=== PATIENT | male | born 1965 | race Caucasian/White ===

== ENCOUNTER 2017-01-30 16:38 | Inpatient (IN) | payer MEDICAID ==
[~2017-01-30] VITALS: Ht 162.6 cm; Wt 73.5 kg
[2017-01-30 17:29] VITALS: BP 146/86
[2017-01-30] MEDS ORDERED: LORazepam 2 MG TABLET PO PRN (17:45)
[2017-01-30] MEDS ORDERED: ZOLPIDEM TARTRATE 10 MG TABLET PO PRN (17:45)
[2017-01-30] MEDS ORDERED: HALOPERIDOL 5 MG TABLET PO PRN (17:45)
[2017-01-30 18:25] VITALS: BP 138/88
[2017-01-30] MEDS ORDERED: INFLUENZA VIRUS VACCINE QVS 2017-18 (3YR+)/PF 60 MCG/0.5 ML SYRINGE IM ONE (18:30)
[2017-01-31 01:06] VITALS: BP 103/72
[2017-01-31] MEDS: CITALOPRAM HYDROBROMIDE 20 MG TABLET PO SCH (08:36)
[2017-01-31 08:40] LABS: ANION GAP 5 mmol/L (8-16); CARBON DIOXIDE 31 mmol/L (22-29); CHLORIDE 103 mmol/L (98-107); CREATININE 1.24 mg/dL (0.60-1.30); POTASSIUM 4.3 mmol/L (3.5-5.1); SODIUM SERUM 139 mmol/L (136-145); UREA NITROGEN, BLOOD 17 mg/dL (7-18)
[2017-01-31 08:41] LABS: ALANINE AMINOTRANSFERASE 31 U/L (12-78); ALBUMIN 3.7 g/dL (3.4-5.0); ASPARTATE AMINOTRANSFERASE 20 U/L (15-37); BILIRUBIN,TOTAL 0.5 mg/dL (0.1-1.0); CALCIUM, TOTAL 9.3 mg/dL (8.8-10.5); CHOL/HDL RATIO 3.6 (4.2-7.3); GLOMERULAR FILTR. RATE CALC > 60 mL/min (>60); THYROID STIMULATING HORMONE 1.17 uIU/mL (0.36-3.74); TOTAL PROTEIN, SERUM 8.1 g/dL (6.4-8.2)
[2017-01-31 08:43] LABS: BASOPHILS % (AUTO) 0.6 % (0.0-2.0); HEMATOCRIT 49.6 % (41-53); HEMOGLOBIN 16.8 g/dL (13.5-17.5); LYMPHOCYTES % (AUTO) 31.6 % (22.0-44.0); MEAN CORPUSCULAR HEMOGLOBIN 32.2 pg (26.0-34.0); MEAN CORPUSCULAR VOLUME 95 fL (80-100); MONOCYTES # (AUTO) 0.7 K/uL (0.1-1.0); MONOCYTES % (AUTO) 11.6 % (2.0-9.0); NEUTROPHILS # (AUTO) 3.3 K/uL (1.8-7.7); NEUTROPHILS % (AUTO) 51.2 % (40.0-70.0); PLATELET COUNT (AUTO) 169 K/uL (150-450); RED BLOOD CELL COUNT(AUTO) 5.22 MIL/uL (4.50-5.90); WHITE BLOOD COUNT (AUTO) 6.4 K/uL (4.5-11.0)
[2017-01-31 08:53] VITALS: BP 111/60
[2017-01-31] MEDS ORDERED: PETROLATUM,WHITE 71 GM JELLY TP PRN (09:45)
[2017-01-31] MEDS ORDERED: CloNIDine HCL 0.1 MG TABLET PO PRN (09:45)
[2017-01-31] MEDS ORDERED: BENZOCAINE/MENTHOL LOZENGE MM PRN (09:45)
[2017-01-31] MEDS ORDERED: ONDANSETRON HCL 4 MG TABLET PO PRN (09:45)
[2017-01-31] MEDS ORDERED: MAG HYDROX/AL HYDROX/SIMETH ES 30 ML SUSPENSION UDCUP PO PRN (09:45)
[2017-01-31] MEDS ORDERED: ACETAMINOPHEN 325 MG TABLET PO PRN (09:45)
[2017-01-31] MEDS ORDERED: BACITRACIN 28.4 GM OINTMENT TP PRN (09:45)
[2017-01-31] MEDS ORDERED: MAGNESIUM HYDROXIDE SUSPENSION 30 ML UDCUP PO PRN (09:45)
[2017-01-31] MEDS ORDERED: ALBUTEROL SULFATE HFA 90 MCG/PUFF 8 GM INHALER IH PRN (09:45)
[2017-01-31] MEDS ORDERED: LOPERAMIDE HCL 2 MG CAPSULE PO PRN (09:45)
[2017-01-31 16:03] VITALS: BP 124/75
[2017-01-31 18:25] VITALS: BP 120/73
[2017-01-31] MEDS: IBUPROFEN 600 MG TABLET PO PRN (18:25)
[2017-02-01 06:13] VITALS: BP 118/79
[2017-02-01] MEDS: CITALOPRAM HYDROBROMIDE 20 MG TABLET PO SCH (08:07)
[2017-02-01 08:55] VITALS: BP 120/79
[2017-02-01] MEDS: IBUPROFEN 600 MG TABLET PO PRN (13:17)
[2017-02-01 13:18] VITALS: BP 116/71
[2017-02-01 16:08] VITALS: BP 117/71
[2017-02-02 00:52] VITALS: BP 115/77
[2017-02-02] MEDS: CITALOPRAM HYDROBROMIDE 20 MG TABLET PO SCH (08:38)
[2017-02-02 08:47] VITALS: BP 112/75
[2017-02-02] MEDS ORDERED: CITA20TA17 PO (11:32)
== END 2017-02-02 12:40 | disposition home or self-care (01) | DRG 754 ==
LOC: B2S 17:43
PROVIDERS: ADMIT Psychiatry & Neurology Psychiatry; ATTEND Psychiatry & Neurology Psychiatry
DX: F32.9 Major depressive disorder, single episode, unspecified (principal); R45.851 Suicidal ideations; F15.10 Other stimulant abuse, uncomplicated; E78.5 Hyperlipidemia, unspecified; Z28.21 Immunization not carried out because of patient refusal; G47.00 Insomnia, unspecified; K40.90 Unilateral inguinal hernia, without obstruction or gangrene, not specified as recurrent; K59.00 Constipation, unspecified; Z59.9 Problem related to housing and economic circumstances, unspecified; R03.0 Elevated blood-pressure reading, without diagnosis of hypertension; Z71.51 Drug abuse counseling and surveillance of drug abuser; Z56.0 Unemployment, unspecified
CPT/HCPCS: 84439; 84443

== ENCOUNTER 2017-02-27 15:41 | Inpatient (IN) | payer MEDICAID ==
[~2017-02-27] VITALS: Ht 162.6 cm; Wt 71.7 kg
[~2017-02-27 15:41] MED LIST: CITA20TA17 PO
[2017-02-27] MEDS ORDERED: LORazepam 2 MG TABLET PO PRN (19:15)
[2017-02-27] MEDS ORDERED: HALOPERIDOL 5 MG TABLET PO PRN (19:15)
[2017-02-27 19:26] VITALS: BP 117/73
[2017-02-27 20:25] VITALS: BP 120/76
[2017-02-27] MEDS ORDERED: ACETAMINOPHEN 325 MG TABLET PO PRN (20:45)
[2017-02-27] MEDS ORDERED: IBUPROFEN 600 MG TABLET PO PRN (20:45)
[2017-02-27] MEDS ORDERED: INFLUENZA VIRUS VACCINE QVS 2017-18 (3YR+)/PF 60 MCG/0.5 ML SYRINGE IM ONE (21:00)
[2017-02-28 00:57] VITALS: BP 106/66
[2017-02-28 08:28] LABS: BASOPHILS # (AUTO) 0.02 K/uL (0.00-0.20); BASOPHILS % (AUTO) 0.3 % (0.0-2.0); EOSINOPHILS # (AUTO) 0.14 K/uL (0.00-0.70); HEMATOCRIT 44.7 % (41-53); HEMOGLOBIN 14.7 g/dL (13.5-17.5); LYMPHOCYTES # (AUTO) 1.7 K/uL (1.0-4.8); LYMPHOCYTES % (AUTO) 26.5 % (22.0-44.0); MEAN CORPUSCULAR HEMOGLOBIN 31.5 pg (26.0-34.0); MEAN CORPUSCULAR HGB CONC 32.9 G/dL (31.0-37.0); MEAN CORPUSCULAR VOLUME 96 fL (80-100); MONOCYTES # (AUTO) 1.1 K/uL (0.1-1.0); MONOCYTES % (AUTO) 16.9 % (2.0-9.0); NEUTROPHILS # (AUTO) 3.4 K/uL (1.8-7.7); NEUTROPHILS % (AUTO) 54.1 % (40.0-70.0); PLATELET COUNT (AUTO) 141 K/uL (150-450); RED BLOOD CELL COUNT(AUTO) 4.68 MIL/uL (4.50-5.90); RED CELL DISTRIBUTION WIDTH 13.2 % (11.5-14.5)
[2017-02-28 08:39] VITALS: BP 125/73
[2017-02-28 08:45] LABS: HEMOGLOBIN A1C 5.9 % (4.5-6.2)
[2017-02-28 09:02] LABS: ALANINE AMINOTRANSFERASE 49 U/L (12-78); ALBUMIN 2.9 g/dL (3.4-5.0); ALKALINE PHOSPHATASE 100 U/L (46-116); ANION GAP 5 mmol/L (8-16); ASPARTATE AMINOTRANSFERASE 29 U/L (15-37); BILIRUBIN,TOTAL 0.5 mg/dL (0.1-1.0); CALCIUM, TOTAL 8.8 mg/dL (8.8-10.5); CARBON DIOXIDE 30 mmol/L (22-29); CHLORIDE 107 mmol/L (98-107); CHOL/HDL RATIO 4.2 (4.2-7.3); CHOLESTEROL 155 mg/dL (131-200); CREATININE 1.01 mg/dL (0.60-1.30); FREE T4 (FREE THYROXINE) 1.01 ng/dL (0.76-1.46); GLOMERULAR FILTR. RATE CALC > 60 mL/min (>60); GLUCOSE,RANDOM 103 mg/dL (70-110); HDL CHOLESTEROL 37 mg/dL (40-60); LDL CHOL (CALC.) 98 mg/dL (0-130); POTASSIUM 4.1 mmol/L (3.5-5.1); SODIUM SERUM 142 mmol/L (136-145); TOTAL PROTEIN, SERUM 7.3 g/dL (6.4-8.2); TRIGLYCERIDES 101 mg/dL (15-150); UREA NITROGEN, BLOOD 14 mg/dL (7-18)
[2017-02-28 16:00] VITALS: BP 113/59
[2017-02-28] MEDS: CITALOPRAM HYDROBROMIDE 20 MG TABLET PO SCH (16:12)
[2017-02-28] MEDS: DIVALPROEX SODIUM 500 MG DR TABLET PO SCH (16:12)
[2017-02-28] MEDS ORDERED: LOPERAMIDE HCL 2 MG CAPSULE PO PRN (19:30)
[2017-02-28] MEDS ORDERED: MAG HYDROX/AL HYDROX/SIMETH ES 30 ML SUSPENSION UDCUP PO PRN (19:30)
[2017-02-28] MEDS ORDERED: CloNIDine HCL 0.1 MG TABLET PO PRN (19:30)
[2017-02-28] MEDS ORDERED: ACETAMINOPHEN 325 MG TABLET PO PRN (19:30)
[2017-02-28] MEDS ORDERED: ALBUTEROL SULFATE HFA 90 MCG/PUFF 8 GM INHALER IH PRN (19:30)
[2017-02-28] MEDS ORDERED: PETROLATUM,WHITE 71 GM JELLY TP PRN (19:30)
[2017-02-28] MEDS ORDERED: BENZOCAINE/MENTHOL LOZENGE MM PRN (19:30)
[2017-02-28] MEDS ORDERED: MAGNESIUM HYDROXIDE SUSPENSION 30 ML UDCUP PO PRN (19:30)
[2017-02-28] MEDS ORDERED: BACITRACIN 28.4 GM OINTMENT TP PRN (19:30)
[2017-02-28] MEDS ORDERED: ONDANSETRON HCL 4 MG TABLET PO PRN (19:30)
[2017-02-28] MEDS: ZOLPIDEM TARTRATE 10 MG TABLET PO PRN (20:20)
[2017-03-01] VITALS: BP 104/87
[2017-03-01] MEDS: OMEPRAZOLE 20 MG CAPSULE PO SCH (08:36)
[2017-03-01] MEDS: CITALOPRAM HYDROBROMIDE 20 MG TABLET PO SCH (08:36)
[2017-03-01] MEDS: DOCUSATE SODIUM 100 MG CAPSULE PO SCH (08:36)
[2017-03-01] MEDS: DIVALPROEX SODIUM 500 MG DR TABLET PO SCH ×2 (08:36→16:24)
[2017-03-01 09:11] VITALS: BP_SYST 121; BP_SYST 139; BP_DIAS 103; BP_DIAS 83
[2017-03-01 16:51] VITALS: BP 120/76
[2017-03-02 06:33] VITALS: BP 137/76
[2017-03-02 08:00] VITALS: BP 113/63
[2017-03-02] MEDS: CITALOPRAM HYDROBROMIDE 20 MG TABLET PO SCH (09:01)
[2017-03-02] MEDS: OMEPRAZOLE 20 MG CAPSULE PO SCH (09:01)
[2017-03-02] MEDS: DOCUSATE SODIUM 100 MG CAPSULE PO SCH (09:01)
[2017-03-02] MEDS: DIVALPROEX SODIUM 500 MG DR TABLET PO SCH ×2 (09:01→16:30)
[2017-03-02 16:00] VITALS: BP 107/63
[2017-03-02] MEDS ORDERED: GuaiFENesin SR 600 MG ER TABLET PO PRN ×2 (19:45)
[2017-03-03 05:23] VITALS: BP 130/86
[2017-03-03 08:55] VITALS: BP 106/66
[2017-03-03] MEDS: CITALOPRAM HYDROBROMIDE 20 MG TABLET PO SCH (10:19)
[2017-03-03] MEDS: OMEPRAZOLE 20 MG CAPSULE PO SCH (10:20)
[2017-03-03] MEDS: DOCUSATE SODIUM 100 MG CAPSULE PO SCH (10:20)
[2017-03-03] MEDS: SODIUM CHLORIDE 0.65% 44 ML NASAL SPRAY NASAL SCH ×4 (10:20→20:22)
[2017-03-03] MEDS: DIVALPROEX SODIUM 500 MG DR TABLET PO SCH ×2 (10:20→16:33)
[2017-03-03 16:28] VITALS: BP 106/67
[2017-03-04 00:28] VITALS: BP 121/78
[2017-03-04] MEDS: SODIUM CHLORIDE 0.65% 44 ML NASAL SPRAY NASAL SCH ×6 (00:34→20:30)
[2017-03-04 08:41] VITALS: BP 106/65
[2017-03-04] MEDS: OMEPRAZOLE 20 MG CAPSULE PO SCH (08:46)
[2017-03-04] MEDS: CITALOPRAM HYDROBROMIDE 20 MG TABLET PO SCH (08:46)
[2017-03-04] MEDS: DOCUSATE SODIUM 100 MG CAPSULE PO SCH (08:46)
[2017-03-04] MEDS: DIVALPROEX SODIUM 500 MG DR TABLET PO SCH ×2 (08:46→16:07)
[2017-03-04 16:15] VITALS: BP 108/67
[2017-03-04] MEDS: ZOLPIDEM TARTRATE 10 MG TABLET PO PRN (22:06)
[2017-03-05] MEDS: SODIUM CHLORIDE 0.65% 44 ML NASAL SPRAY NASAL SCH ×6 (01:03→20:05)
[2017-03-05 05:50] VITALS: BP 122/78
[2017-03-05 08:00] VITALS: BP 123/70
[2017-03-05] MEDS: CITALOPRAM HYDROBROMIDE 20 MG TABLET PO SCH (08:15)
[2017-03-05] MEDS: DOCUSATE SODIUM 100 MG CAPSULE PO SCH (08:15)
[2017-03-05] MEDS: OMEPRAZOLE 20 MG CAPSULE PO SCH (08:15)
[2017-03-05] MEDS: DIVALPROEX SODIUM 500 MG DR TABLET PO SCH ×2 (08:15→16:05)
[2017-03-05 09:33] VITALS: BP 123/70
[2017-03-05 16:41] VITALS: BP 129/77
[2017-03-05] MEDS: ZOLPIDEM TARTRATE 10 MG TABLET PO PRN (20:05)
[2017-03-06] MEDS: SODIUM CHLORIDE 0.65% 44 ML NASAL SPRAY NASAL SCH ×2 (01:27→05:08)
[2017-03-06 06:28] VITALS: BP 125/75
[2017-03-06] MEDS: OMEPRAZOLE 20 MG CAPSULE PO SCH (08:09)
[2017-03-06] MEDS: CITALOPRAM HYDROBROMIDE 20 MG TABLET PO SCH (08:09)
[2017-03-06] MEDS: DIVALPROEX SODIUM 500 MG DR TABLET PO SCH ×2 (08:09→16:19)
[2017-03-06] MEDS: DOCUSATE SODIUM 100 MG CAPSULE PO SCH (08:09)
[2017-03-06 10:53] VITALS: BP 122/80
[2017-03-06 16:43] VITALS: BP 118/64
[2017-03-06] MEDS: ZOLPIDEM TARTRATE 10 MG TABLET PO PRN (21:30)
[2017-03-07 06:04] VITALS: BP 110/70
[2017-03-07 08:37] VITALS: BP 108/64
[2017-03-07] MEDS: CITALOPRAM HYDROBROMIDE 20 MG TABLET PO SCH (09:12)
[2017-03-07] MEDS: DOCUSATE SODIUM 100 MG CAPSULE PO SCH (09:12)
[2017-03-07] MEDS: OMEPRAZOLE 20 MG CAPSULE PO SCH (09:12)
[2017-03-07] MEDS: DIVALPROEX SODIUM 500 MG DR TABLET PO SCH ×2 (09:12→16:29)
[2017-03-07 16:18] VITALS: BP 102/67
[2017-03-07] MEDS: ZOLPIDEM TARTRATE 10 MG TABLET PO PRN (21:41)
[2017-03-08 00:27] VITALS: BP 90/62
[2017-03-08] MEDS: DIVALPROEX SODIUM 500 MG DR TABLET PO SCH (08:21)
[2017-03-08] MEDS: CITALOPRAM HYDROBROMIDE 20 MG TABLET PO SCH (08:21)
[2017-03-08] MEDS: OMEPRAZOLE 20 MG CAPSULE PO SCH (08:21)
[2017-03-08] MEDS: DOCUSATE SODIUM 100 MG CAPSULE PO SCH (08:22)
[2017-03-08] MEDS ORDERED: DSS100 PO (08:56)
[2017-03-08] MEDS ORDERED: OMEP20 PO (08:56)
[2017-03-08] MEDS ORDERED: DIVA500T35 PO (08:56)
[2017-03-08 09:31] VITALS: BP 120/60
== END 2017-03-08 11:54 | disposition home or self-care (01) | DRG 753 ==
LOC: B2S 19:14
PROVIDERS: ADMIT Psychiatry & Neurology Psychiatry; ATTEND Psychiatry & Neurology Psychiatry
DX: F31.9 Bipolar disorder, unspecified (principal); R45.851 Suicidal ideations; I10 Essential (primary) hypertension; K59.00 Constipation, unspecified; K40.90 Unilateral inguinal hernia, without obstruction or gangrene, not specified as recurrent; F15.10 Other stimulant abuse, uncomplicated; E78.5 Hyperlipidemia, unspecified; G47.00 Insomnia, unspecified; Z71.51 Drug abuse counseling and surveillance of drug abuser; Z79.899 Other long term (current) drug therapy
CPT/HCPCS: 82306; 83036; 84439; 84443; 87081; 90471

== ENCOUNTER 2018-02-07 20:23 | Inpatient (IN) | payer MEDICAID ==
[~2018-02-07] VITALS: Ht 162.6 cm; Wt 75.7 kg
[~2018-02-07 20:23] MED LIST changes: +DIVA-78 PO; +DSS100 PO; +OMEP20 PO
[2018-02-28 17:42] VITALS: BP 141/75
[2018-02-28] MEDS ORDERED: HALOPERIDOL 5 MG TABLET PO PRN (17:45)
[2018-02-28] MEDS ORDERED: LORazepam 2 MG TABLET PO PRN (17:45)
[2018-02-28 17:47] VITALS: BP 141/75
[2018-02-28] MEDS ORDERED: IBUPROFEN 400 MG TABLET PO PRN (18:30)
[2018-02-28] MEDS ORDERED: LOPERAMIDE HCL 2 MG CAPSULE PO PRN (18:30)
[2018-02-28] MEDS ORDERED: MAGNESIUM HYDROXIDE SUSPENSION 30 ML UDCUP PO PRN (18:30)
[2018-02-28] MEDS ORDERED: GuaiFENesin/D-METHORPHAN [SUGAR-FREE] 200-20MG/10 ML SYRUP UDCUP PO PRN (18:30)
[2018-02-28] MEDS ORDERED: ACETAMINOPHEN 325 MG TABLET PO PRN (18:30)
[2018-02-28] MEDS ORDERED: ONDANSETRON HCL 4 MG TABLET PO PRN (18:30)
[2018-02-28] MEDS ORDERED: DOCUSATE SODIUM 100 MG CAPSULE PO PRN (18:30)
[2018-02-28] MEDS ORDERED: MAG HYDROX/AL HYDROX/SIMETH ES 30 ML SUSPENSION UDCUP PO PRN (18:30)
[2018-02-28] MEDS ORDERED: ALBUTEROL SULFATE HFA 90 MCG/PUFF 8 GM INHALER IH PRN (18:30)
[2018-02-28] MEDS ORDERED: CloNIDine HCL 0.1 MG TABLET PO PRN (18:30)
[2018-03-01 05:30] VITALS: BP 140/76
[2018-03-01 08:01] LABS: EOSINOPHILS % (AUTO) 6.9 % (1.0-6.0); HEMATOCRIT 43.8 % (41-53); HEMOGLOBIN 14.6 g/dL (13.5-17.5); LYMPHOCYTES % (AUTO) 37.7 % (22.0-44.0); MEAN CORPUSCULAR HEMOGLOBIN 32.3 pg (26.0-34.0); MEAN CORPUSCULAR HGB CONC 33.3 G/dL (31.0-37.0); MEAN CORPUSCULAR VOLUME 97 fL (80-100); MONOCYTES # (AUTO) 0.6 K/uL (0.1-1.0); MONOCYTES % (AUTO) 11.8 % (2.0-9.0); NEUTROPHILS # (AUTO) 2.2 K/uL (1.8-7.7); NEUTROPHILS % (AUTO) 42.6 % (40.0-70.0); RED BLOOD CELL COUNT(AUTO) 4.52 MIL/uL (4.50-5.90); RED CELL DISTRIBUTION WIDTH 13.3 % (11.5-14.5)
[2018-03-01 08:07] VITALS: BP 121/70
[2018-03-01 08:12] LABS: HEMOGLOBIN A1C 5.7 % (4.5-6.2)
[2018-03-01 08:27] LABS: ALANINE AMINOTRANSFERASE 24 U/L (12-78); ALBUMIN 2.9 g/dL (3.4-5.0); ALKALINE PHOSPHATASE 53 U/L (46-116); ANION GAP 4 mmol/L (8-16); ASPARTATE AMINOTRANSFERASE 16 U/L (15-37); BILIRUBIN,TOTAL 0.3 mg/dL (0.1-1.0); CALCIUM, TOTAL 8.5 mg/dL (8.8-10.5); CARBON DIOXIDE 30 mmol/L (22-29); CHLORIDE 108 mmol/L (98-107); CHOL/HDL RATIO 4.6 (4.2-7.3); CHOLESTEROL 176 mg/dL (131-200); CREATININE 1.05 mg/dL (0.60-1.30); FREE T4 (FREE THYROXINE) 0.71 ng/dL (0.76-1.46); GLOMERULAR FILTR. RATE CALC > 60 mL/min (>60); GLUCOSE,RANDOM 90 mg/dL (70-110); HDL CHOLESTEROL 38 mg/dL (40-60); LDL CHOL (CALC.) 118 mg/dL (0-130); POTASSIUM 4.4 mmol/L (3.5-5.1); SODIUM SERUM 142 mmol/L (136-145); THYROID STIMULATING HORMONE 1.61 uIU/mL (0.36-3.74); TOTAL PROTEIN, SERUM 6.5 g/dL (6.4-8.2); TRIGLYCERIDES 100 mg/dL (15-150); UREA NITROGEN, BLOOD 15 mg/dL (7-18)
[2018-03-01 08:36] LABS: PLATELET COUNT (AUTO) 139 K/uL (150-450)
[2018-03-01] MEDS: OMEPRAZOLE 20 MG CAPSULE PO SCH (09:23)
[2018-03-01] MEDS: DOCUSATE SODIUM 100 MG CAPSULE PO SCH (09:23)
[2018-03-01 16:00] VITALS: BP 111/67
[2018-03-01] MEDS: ZOLPIDEM TARTRATE 10 MG TABLET PO PRN (21:01)
[2018-03-01] MEDS: CITALOPRAM HYDROBROMIDE 20 MG TABLET PO SCH (21:01)
[2018-03-02 06:00] VITALS: BP 126/72
[2018-03-02] MEDS: OMEPRAZOLE 20 MG CAPSULE PO SCH (08:28)
[2018-03-02] MEDS: ARIPiprazole 15 MG TABLET PO SCH (08:28)
[2018-03-02] MEDS: DOCUSATE SODIUM 100 MG CAPSULE PO SCH (08:28)
[2018-03-02 09:24] VITALS: BP 105/68
[2018-03-02 16:00] VITALS: BP 108/70
[2018-03-02] MEDS: CITALOPRAM HYDROBROMIDE 20 MG TABLET PO SCH (20:38)
[2018-03-03 03:09] VITALS: BP 112/70
[2018-03-03] MEDS: OMEPRAZOLE 20 MG CAPSULE PO SCH (08:32)
[2018-03-03] MEDS: DOCUSATE SODIUM 100 MG CAPSULE PO SCH (08:32)
[2018-03-03] MEDS: ARIPiprazole 15 MG TABLET PO SCH (08:32)
[2018-03-03 08:34] VITALS: BP 107/63
[2018-03-03 16:00] VITALS: BP 110/66
[2018-03-03] MEDS: ZOLPIDEM TARTRATE 10 MG TABLET PO PRN (20:54)
[2018-03-03] MEDS: CITALOPRAM HYDROBROMIDE 20 MG TABLET PO SCH (20:54)
[2018-03-04 05:01] VITALS: BP 114/67
[2018-03-04 08:14] VITALS: BP 111/69
[2018-03-04] MEDS: OMEPRAZOLE 20 MG CAPSULE PO SCH (08:45)
[2018-03-04] MEDS: ARIPiprazole 15 MG TABLET PO SCH (08:45)
[2018-03-04] MEDS: DOCUSATE SODIUM 100 MG CAPSULE PO SCH (08:45)
[2018-03-04] MEDS ORDERED: ARIP15TA2 PO (09:16)
[2018-03-04] MEDS ORDERED: CITA-106 PO (09:16)
[2018-03-05] MEDS ORDERED: DIVA-78 PO (17:36)
[2018-03-06] MEDS ORDERED: SERT100T12 PO (08:36)
[2018-03-06] MEDS ORDERED: ACYC200C PO (08:36)
[2018-03-06] MEDS ORDERED: BUPR75 PO (08:36)
[2018-03-06] MEDS ORDERED: HYDR25TA84 PO (08:36)
[2018-03-06] MEDS ORDERED: DOXY100C PO (08:37)
[2018-03-06] MEDS ORDERED: ARIP15TA2 PO (08:40)
[2018-03-06] MEDS ORDERED: OMEP20 PO (08:40)
[2018-03-06] MEDS ORDERED: CITA-106 PO (08:40)
[2018-03-06] MEDS ORDERED: DSS100 PO (08:40)
[2018-03-06] MEDS ORDERED: DIVA-78 PO (08:40)
[2018-03-06] MEDS ORDERED: CITA20TA17 PO (08:40)
== END 2018-03-04 10:10 | disposition home or self-care (01) | DRG 751 ==
LOC: B3A 02-28 17:38
PROVIDERS: ADMIT Psychiatry & Neurology Psychiatry; ATTEND Psychiatry & Neurology Psychiatry
DX: F33.2 Major depressive disorder, recurrent severe without psychotic features (principal); D69.6 Thrombocytopenia, unspecified; R45.851 Suicidal ideations; Z23 Encounter for immunization; E78.5 Hyperlipidemia, unspecified; F10.10 Alcohol abuse, uncomplicated; F41.9 Anxiety disorder, unspecified; K21.9 Gastro-esophageal reflux disease without esophagitis; K59.00 Constipation, unspecified; Z79.899 Other long term (current) drug therapy; Z81.8 Family history of other mental and behavioral disorders; F14.90 Cocaine use, unspecified, uncomplicated; Z71.41 Alcohol abuse counseling and surveillance of alcoholic; Z71.51 Drug abuse counseling and surveillance of drug abuser
CPT/HCPCS: 83036; 84439; 84443; 90686

== ENCOUNTER 2018-05-21 12:30 | Inpatient (IN) | payer MEDICAID ==
[~2018-05-21] VITALS: Ht 162.6 cm; Wt 75.4 kg
[~2018-05-21 12:30] MED LIST changes: +ARIP15TA2 PO; -CITA20TA17 PO; -DIVA-78 PO; -DSS100 PO; +ESCI20TA PO; -OMEP20 PO
[2018-05-21] MEDS ORDERED: CITA10TA68 PO (12:46)
[2018-05-21 12:50] VITALS: BP 101/69
[2018-05-21] MEDS ORDERED: ZOLPIDEM TARTRATE 10 MG TABLET PO PRN (13:00)
[2018-05-21] MEDS ORDERED: LORazepam 2 MG TABLET PO PRN (13:00)
[2018-05-21] MEDS ORDERED: HALOPERIDOL 5 MG TABLET PO PRN (13:00)
[2018-05-21 13:50] VITALS: BP 116/76
[2018-05-21 16:50] VITALS: BP 110/72
[2018-05-22 00:18] VITALS: BP 112/60
[2018-05-22 08:16] LABS: BASOPHILS % (AUTO) 1.2 % (0.0-2.0); EOSINOPHILS % (AUTO) 8.6 % (1.0-6.0); HEMATOCRIT 47.2 % (41-53); HEMOGLOBIN 15.6 g/dL (13.5-17.5); LYMPHOCYTES # (AUTO) 1.4 K/uL (1.0-4.8); LYMPHOCYTES % (AUTO) 23.9 % (22.0-44.0); MEAN CORPUSCULAR HEMOGLOBIN 32.2 pg (26.0-34.0); MEAN CORPUSCULAR VOLUME 98 fL (80-100); MONOCYTES # (AUTO) 0.6 K/uL (0.1-1.0); MONOCYTES % (AUTO) 10.7 % (2.0-9.0); NEUTROPHILS # (AUTO) 3.1 K/uL (1.8-7.7); NEUTROPHILS % (AUTO) 55.6 % (40.0-70.0); PLATELET COUNT (AUTO) 150 K/uL (150-450); RED BLOOD CELL COUNT(AUTO) 4.83 MIL/uL (4.50-5.90); RED CELL DISTRIBUTION WIDTH 13.5 % (11.5-14.5)
[2018-05-22 08:30] LABS: HEMOGLOBIN A1C 5.9 % (4.5-6.2)
[2018-05-22 08:36] LABS: ALANINE AMINOTRANSFERASE 12 U/L (12-78); ALBUMIN 3.2 g/dL (3.4-5.0); ALKALINE PHOSPHATASE 58 U/L (46-116); ANION GAP 8 mmol/L (8-16); ASPARTATE AMINOTRANSFERASE 11 U/L (15-37); BILIRUBIN,TOTAL 0.4 mg/dL (0.1-1.0); CALCIUM, TOTAL 9.4 mg/dL (8.8-10.5); CARBON DIOXIDE 28 mmol/L (22-29); CHLORIDE 104 mmol/L (98-107); CHOL/HDL RATIO 3.7 (4.2-7.3); CHOLESTEROL 182 mg/dL (131-200); CREATININE 1.12 mg/dL (0.60-1.30); FREE T4 (FREE THYROXINE) 0.91 ng/dL (0.76-1.46); GLOMERULAR FILTR. RATE CALC > 60 mL/min (>60); GLUCOSE,RANDOM 91 mg/dL (70-110); HDL CHOLESTEROL 49 mg/dL (40-60); LDL CHOL (CALC.) 111 mg/dL (0-130); POTASSIUM 4.5 mmol/L (3.5-5.1); SODIUM SERUM 140 mmol/L (136-145); THYROID STIMULATING HORMONE 1.86 uIU/mL (0.36-3.74); TOTAL PROTEIN, SERUM 6.9 g/dL (6.4-8.2); TRIGLYCERIDES 110 mg/dL (15-150); UREA NITROGEN, BLOOD 12 mg/dL (7-18)
[2018-05-22 08:43] LABS: APPEARANCE,URINE CLOUDY (CLEAR); BILIRUBIN,URINE NEGATIVE (NEGATIVE); GLUCOSE, URINE (UA) NEGATIVE (NEGATIVE); KETONES,URINE TRACE mg/dL (NEGATIVE); LEUKOCYTE ESTERASE ,URINE NEGATIVE (NEGATIVE); NITRATE,URINE NEGATIVE (NEGATIVE); OCCULT BLOOD,URINE NEGATIVE (NEGATIVE); PROTEIN,URINE NEGATIVE (NEGATIVE); UROBILINOGEN,URINE 0.2 mg/dL (<=1.0)
[2018-05-22 08:46] LABS: AMPHET/METH SCREEN,URINE NEGATIVE (NEGATIVE); BARBITURATE SCREEN, URINE NEGATIVE (NEGATIVE); BENZODIAZEPINES SCREEN,URINE NEGATIVE (NEGATIVE); CANNABINOID SCREEN,URINE NEGATIVE (NEGATIVE); COCAINE SCREEN,URINE NEGATIVE (NEGATIVE); METHADONE SCREEN, URINE NEGATIVE (NEGATIVE); OPIATE SCREEN,URINE NEGATIVE (NEGATIVE)
[2018-05-22 08:49] LABS: PHENCYCLIDINE SCREEN,URINE NEGATIVE (NEGATIVE)
[2018-05-22 08:54] VITALS: BP 103/60
[2018-05-22] MEDS: ARIPiprazole 15 MG TABLET PO SCH (09:36)
[2018-05-22] MEDS: CITALOPRAM HYDROBROMIDE 10 MG TABLET PO SCH (09:36)
[2018-05-22 16:59] VITALS: BP_SYST 106; BP_SYST 109; BP_DIAS 68; BP_DIAS 79
[2018-05-22] MEDS ORDERED: MAGNESIUM HYDROXIDE SUSPENSION 30 ML UDCUP PO PRN (22:30)
[2018-05-22] MEDS ORDERED: BACITRACIN 28.4 GM OINTMENT TP PRN (22:30)
[2018-05-22] MEDS ORDERED: IBUPROFEN 600 MG TABLET PO PRN (22:30)
[2018-05-22] MEDS ORDERED: LOPERAMIDE HCL 2 MG CAPSULE PO PRN (22:30)
[2018-05-22] MEDS ORDERED: MAG HYDROX/AL HYDROX/SIMETH ES 30 ML SUSPENSION UDCUP PO PRN (22:30)
[2018-05-22] MEDS ORDERED: ONDANSETRON HCL 4 MG TABLET PO PRN (22:30)
[2018-05-22] MEDS ORDERED: PETROLATUM,WHITE 28 GM JELLY TP PRN (22:30)
[2018-05-22] MEDS ORDERED: ALBUTEROL SULFATE HFA 90 MCG/PUFF 8 GM INHALER IH PRN (22:30)
[2018-05-22] MEDS ORDERED: CloNIDine HCL 0.1 MG TABLET PO PRN (22:30)
[2018-05-22] MEDS ORDERED: ACETAMINOPHEN 325 MG TABLET PO PRN (22:30)
[2018-05-22] MEDS ORDERED: BENZOCAINE/MENTHOL LOZENGE MM PRN (22:30)
[2018-05-23 00:25] VITALS: BP 120/81
[2018-05-23] MEDS: MULTIVITAMINS WITH MINERALS, THERAPEUTIC TABLET PO SCH ×2 (06:43→07:07)
[2018-05-23] MEDS: CITALOPRAM HYDROBROMIDE 10 MG TABLET PO SCH (08:25)
[2018-05-23] MEDS: ARIPiprazole 15 MG TABLET PO SCH (08:25)
[2018-05-23 08:31] VITALS: BP 109/67
[2018-05-23] MEDS ORDERED: DOCUSATE SODIUM 100 MG CAPSULE PO SCH (09:00)
[2018-05-23] MEDS ORDERED: OMEGA-3/DHA/EPA/FISH OIL 1,000 MG CAPSULE PO SCH (09:00)
[2018-05-23] MEDS ORDERED: OMEPRAZOLE 20 MG CAPSULE PO SCH (09:00)
[2018-05-23 16:46] VITALS: BP 132/84
[2018-05-23] MEDS ORDERED: DSS100 PO (18:18)
[2018-05-23] MEDS ORDERED: OMEP20 PO (18:19)
[2018-05-23] MEDS ORDERED: OMEG-135 PO (18:19)
== END 2018-05-23 20:00 | disposition home or self-care (01) | DRG 754 ==
LOC: B2S 13:39
PROVIDERS: ADMIT Psychiatry & Neurology Psychiatry; ATTEND Psychiatry & Neurology Psychiatry
DX: F32.9 Major depressive disorder, single episode, unspecified (principal); F22 Delusional disorders; E78.5 Hyperlipidemia, unspecified; F41.9 Anxiety disorder, unspecified; G47.00 Insomnia, unspecified; K21.9 Gastro-esophageal reflux disease without esophagitis; K59.00 Constipation, unspecified; F19.10 Other psychoactive substance abuse, uncomplicated; Z72.89 Other problems related to lifestyle
CPT/HCPCS: 80307; 83036; 84439; 84443